=== PATIENT | female | born 1985 | race Hispanic/Latino ===

== ENCOUNTER 2017-01-17 00:07 | Inpatient (IN) | payer OTHER ==
[~2017-01-17] VITALS: Ht 154.9 cm; Wt 96.2 kg
[~2017-01-17 00:07] MED LIST: Hydrocodone/Acetaminophen PO; IRON1TAB PO; Ibuprofen PO; Lanolin TOPICAL; PREN1TAB47 PO; TUCPAD TOPICAL
[2017-01-17] MEDS ORDERED: Hemorrhage Kit, Post Partum XX ONE ×2 (00:50→01:55)
[2017-01-17] MEDS ORDERED: Oxytocin 10 Unit/mL Inj IM PRN ×2 (00:50→01:55)
[2017-01-17] MEDS ORDERED: Lactated Ringer's 1,000 ML IV PRN (00:50)
[2017-01-17] MEDS ORDERED: Methylergonovine 0.2 mg/mL Inj IM PRN ×2 (00:50→01:55)
[2017-01-17] MEDS ORDERED: Carboprost 250 mCg/mL Inj IM PRN ×2 (00:50→01:55)
[2017-01-17] MEDS ORDERED: fentaNYL-PF 50 mCg/mL 2 mL Inj IVPUSH PRN (00:50)
[2017-01-17] MEDS ORDERED: Ondansetron 2 mg/mL 2 mL Inj IVPUSH PRN (00:50)
[2017-01-17] MEDS ORDERED: Oxytocin 30 Units/500 mL LR 30 UNITS in IV Premix 1 EACH IV PRN (00:50)
[2017-01-17] MEDS ORDERED: Sodium Chloride LOK Flush 10 mL Syringe IVFLUSH PRN (00:50)
[2017-01-17] MEDS ORDERED: HYDROcodone-APAP 5-325 mg Tablet PO PRN (01:55)
--- NOTE | 2017-01-17 02:03 | PCM.HPOB ---
Subjective Date of Service: Jan 17, 2017 Referring Provider: Admitting Physician: Whitney Pantoja MD Primary Care Physician: Whitney Pantoja MD Attending Physician: Whitney Pantoja MD Chief Complaint Active labor at 38+5 weeks History of Present History of Present Illness Patient is a very pleasant 31-year-old who has had regular care with [facility] of January 26, 2017. She started michael at around 8 PM on 2016 and came to the center by 12:30 PM and was 4-5 cm dilated. She was michael every 7-8 minutes and blood pressures were initially elevated and in the 140-150/90 range. She was having some bloody show and was quite uncomfortable with the contractions. heart rate was reactive with baseline in the 140s and good ntoy-op-ufpt variability. Mother has been working full-time through most of the but stopped work in late December as she was getting a lot of swelling in the hands and the feet. She was standing on her feet for 10-12 hour shifts. The swelling in her feet resolved nicely with getting off work and she did not have any hypertension during her . Weight gain in the was 21 pounds. Patient was seen by maternal medicine and had a normal level II ultrasound and normal echocardiogram done. Her first baby had total anomalous pulmonary venous return and has had 2 heart surgeries but is currently alive and well, and baby #5 had had mild to moderate renal pyelectasis antenatally which resolved over time spontaneously after baby was born within the first year of life. Mother's quad screen was negative. GBS was also negative. OB History: (6), Term (5), (0), Living (5) Obstetrical Complications: None Past Medical History Obstetrical History: 1. Baby #1 was born May 2000 at 40 weeks gestational age following 12 hours of labor. Mom had normal vaginal delivery of a baby girl weighing 7 lbs. 7 oz. That baby had total anomalous pulmonary venous return and has had 2 heart surgeries but is alive and doing well. " "Nikki" 2. Baby #2 was born February 2006, at 40 weeks gestational age following 8 hours of labor. Mom had normal vaginal delivery of a baby girl weighing 7 lbs. 6 oz. was uncomplicated and baby is healthy." Carol Ann" 3. Baby #3 was born March 2009 at 40 weeks gestational age following 3 hours of labor. Mom had normal vaginal delivery of a baby girl weighing 6 lbs. 7 oz. was uncomplicated and baby is healthy. " Kylah" 4. Baby #4 was born May 2011 at 39 weeks gestational age following 2 hours of labor. Mom had normal vaginal delivery of a baby boy weighing 7 lbs. 6 oz. was uncomplicated and baby is healthy. " Bandar" 5. Baby #5 was born April 2014 at 39 weeks +5 days gestational age following 3 hours of labor. Mom had normal vaginal delivery of a baby boy weighing 7 pounds. was uncomplicated and baby was noted to have mild-to- moderate pyelectasis antenatally which resolve spontaneously over the first year of life. "[place]" Gynecologic History: Mom has not had any history of STDs or abnormal Pap smears. Medical History: She has had history of mild goiter and cholecystitis with gallstone pancreatitis. She had cholecystectomy in 2006. She had mild depression following her second baby that was situational and she did use medications for a short time. Surgical History: She has had laparoscopic gallbladder removal but no other surgeries. Social History: Mom is single but lives with the father of her baby and has 3 years of college education. 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 Hx Tobacco Use: No Hx Alcohol Use: No Hx Substance Use: No Past Family History Living Arrangement: with Family Genetic Screening/Counseling Genetic Screening/Counseling: Negative Genetic Screening: Congenital heart defect (her first baby had total anomalous pulmonary venous return) Baby father-had child w defect: No Review of Systems Constitutional: Y: Fever Eyes: Denies: Blurred Vision, Double Vision ENT: Denies: Dental Problems, Ear Pain, Nasal Congestion, Nose Discharge Cardiovascular: Denies: Chest Pain, Edema Respiratory: Denies: Cough Gastrointestinal: Denies: Abdominal Pain, Constipation, Diarrhea, Epigastric pain, Nausea, Vomiting Genitourinary: Denies: Dysuria Musculoskeletal: Denies: Back Pain, Neck Pain Skin/Breasts: Denies: Bruising Neurological: Denies: Change in Speech Psychologic: Denies: Agitation, Anxious, Depression Hematologic: Denies: Adenopathy Medications Home medications Patient was only taking vitamins at home. Allergy Coded Allergies: No Known Allergies (Verified , 03/08/06) Exam Vital Signs Initial blood pressures have ranged 140-150/91-93 , with maternal heart rate 75- 85. Mom is afebrile. Exam heart rate baseline was in the 130s to 140s with good variability. Constitutional: Well-developed, Well-nourished HEENT: Mucous Membr Moist/Tyler Lungs: Clear to Auscultation, Normal Air Movement Heart: Regular Rate/Rhythm, Normal S1, Normal S2, No Murmurs/Rubs/Gallops Abdomen: Gravid Extremities: Pulses Palpable x4, No Edema Neurological/Psychiatric: Alert, Oriented X3, Cooperative Neuro: Grossly Neurologically Intact Labs/Diagnostics Labs Mother's blood type is O+ with no abnormal antibodies. Pap smear was normal. Varicella and rubella are both immune. RPR was nonreactive. Urine culture showed mixed urogenital rodolfo. Hepatitis B surface antigen was negative. HIV was negative. Hepatitis C was less than 0.1. TSH was low at 0.134 but free T4 was normal at 1.10. HSV type I was positive for type II was negative. GC chlamydia was negative. Quad screen was normal. Her 1 hour GTT was elevated at 159. However the 3 hour GTT showed fasting blood sugar of 78, 1 hour value of 160, 2 are value of 117, and three-hour value of 117. Her A1c at time of this GTT was 5.4%. Antibody screen at that point was also negative. Group B strep was negative. Maternal Blood Type: O Hx Rho(D) Immune Globulin: No Antibody Screen: negative Group B Strep Results: Negative Previous with GBS: No Rubella: Immune Lab History: Positive for: Hx Herpes, Negative for: Hx Chicken Pox, Hx Gonorrhea, Hx HIV, Hx Syphilis OB Intrapartum Assessment/Plan Assessment 31-year-old at 38 weeks +5 weeks who came in in active labor. She is having bloody show but membranes are intact. heart rate is reassuring. Mother has not had an epidural with any of her previous pregnancies and intends to have natural labor. Blood pressures are modestly elevated in the 140-150 range/91-93. PIH labs will be drawn with usual admission blood work. Estimated weight is 6-1/2-7 pounds range. Normal vaginal delivery is anticipated. Problems: (1) with 38 completed weeks gestation Status: Acute ICD Code: Z3A.38 Pain Evaluation: Adequate Pain Control Whitney Pantoja MD 9, 2017 02:03
--- NOTE | 2017-01-17 02:22 | PCM.OBVAG ---
Vaginal Delivery Date of Service Jan 17, 2017 Pre Operative Diagnosis Pre Operative Diagnosis 1. at 38 weeks +5 days with spontaneous labor 2. Thin meconium staining to the amniotic fluid 3. Spontaneous vaginal delivery of a live born male Post Operative Diagnosis Post Operative Diagnosis 1. at 38 weeks +5 days with spontaneous labor 2. Thin meconium staining to the amniotic fluid 3. Spontaneous vaginal delivery of a live born male infant Procedure Obstetical Procedure: Normal Spontaneous Vaginal Delivery Shipping & Receiving Lead/Cloth Examiner Hand Provider and Cloth Examiner Hand: Dr. Whitney Pantoja Indication for Procedure Induction: Active labor, SROM, Progressed normally through labor Findings Obstetrical Findings: Cruger (Male), Cord (3 Vessel), Weight (2897), Presentation (Vertex), 1 minute (9), 5 minutes (9), Placenta (Intact /Normal) Analgesia/Medications Procedural Analgesia: Patient did not use any analgesia in labor. Her partner was present and supportive. Procedure Details Procedure Details Patient is a very pleasant 31-year-old who has had regular care with [facility] of 01/26/2017. She is 38 weeks +5 days and started in labor at 8 PM this evening and came to the center just after midnight and was 4-5 cm dilated. Membranes were intact at that time and heart rate was reactive with baseline in the 130s to 140s with good ffff-fn-eyyv variability. She made rapid progress over the next 30 minutes and had spontaneous rupture of membranes at complete for thin meconium staining to the amniotic fluid. She went onto spontaneous vaginal delivery of a live born male infant. Baby was vigorous and cried weight away and was placed on the maternal abdomen and delayed cord clamping was employed. weight was 6 pounds and 6 ounces, Apgars 9 at 1 minute and 9 at 5 minutes. Placenta delivered intact with a three -vessel cord and mother's perineum was intact. Her blood pressures prior to delivery ranged 140-150/91-93 range but first values after delivery were 128/ 75. Mother is not having any headaches, nausea or vomiting, or any visual changes. She has some puffiness to her hands but no ankle edema. I think that retrospectively her blood pressures may have just been pain related due to rapid progress in active labor. She has not had any history of PIH with any of her other babies and does not have hypertension outside of . Both mom and baby are doing well at this time and routine care is anticipated. Nursing staff had been unable to get an IV started before baby was delivered. Pitocin 10 units IM was given after delivery of the placenta and mother was having minimal bleeding, so further attempts at starting an IV were not made. Specimen Placenta was for routine disposal, it appeared intact. Blood Loss & Administration Estimated Blood Loss: 200 Post Procedure Plan Post delivery Condition: Mom stable Whitney Pantoja MD Jan 17, 2017 02:22
[2017-01-17] MEDS ORDERED: Oxytocin 30 Units/500 mL LR Premix IV ONE (02:48)
[2017-01-17 07:53] LABS: Mean Corpuscular Hemoglobin 31.1 pg (27.0-35.0); Mean Corpuscular Volume 96.7 fL (81-100)
[2017-01-18 07:00] LABS: Mean Corpuscular Hemoglobin 31.5 pg (27.0-35.0); Mean Corpuscular Volume 97.8 fL (81-100)
--- NOTE | 2017-01-18 08:09 | PCM.DC.OB ---
Obstetrical Discharge Summary Date of Service Jan 18, 2017 Date of hospital admission Jan 17, 2017 at 00:43 Date of Discharge: Jan 18, 2017 Providers Admitting Physician: Neville Pantoja MD Primary Care Physician: Neville Pantoja MD Attending Physician: Neville Pantoja MD Diagnosis at Time of Discharge #1 at 38 weeks +5 days with spontaneous labor #2 thin meconium staining to the amniotic fluid #3 spontaneous vaginal delivery of a live born male infant Problems: (1) with 38 completed weeks gestation Status: Resolved ICD Code: Z3A.38 (2) Thin meconium stained amniotic fluid Status: Resolved ICD Code: P96.83 (3) Term of male Status: Acute ICD Code: Z37.0 Brief History and Physical: Patient is a very pleasant 31-year-old who has had regular care with [facility] of January 26, 2017. She started michael at around 8 PM on 2016 and came to the center by 12:30 PM and was 4-5 cm dilated. She was michael every 7-8 minutes and blood pressures were initially elevated and in the 140-150/90 range. She was having some bloody show and was quite uncomfortable with the contractions. heart rate was reactive with baseline in the 140s and good iboy-bz-dgqz variability. Mother has been working full-time through most of the but stopped work in late December as she was getting a lot of swelling in the hands and the feet. She was standing on her feet for 10-12 hour shifts. The swelling in her feet resolved nicely with getting off work and she did not have any hypertension during her . Weight gain in the was 21 pounds. Patient was seen by maternal medicine and had a normal level II ultrasound and normal echocardiogram done. Her first baby had total anomalous pulmonary venous return and has had 2 heart surgeries but is currently alive and well, and baby #5 had had mild to moderate renal pyelectasis antenatally which resolved over time spontaneously after baby was born within the first year of life. Mother's quad screen was negative. GBS was also negative. Hospital Course: Mother is a very pleasant 31-year-old G6 now P6 who has had regular care and came into the center in active labor at 38 weeks +5 days. She made rapid progress to complete and thin meconium staining was noted in the amniotic fluid on SROM just before the baby was born. She went onto spontaneous vaginal delivery of a live born male , and baby was vigorous and cried right away. He was placed onto the maternal abdomen and delayed cord clamping was done. Apgars were 9 at 1 minute and 9 at 5 minutes. heart rate had been reactive with good nghw-em-ifut variability and good accelerations throughout labor and delivery. Placenta delivered intact with a three-vessel cord, and estimated blood loss at time of delivery was less than 300 mls. Mother's perineum was intact at time of delivery. In the mother has been doing well. She has been breast-feeding some but has mostly been bottle feeding and has done a combination of both of these feeding modalities for her other children. Her vital signs have been stable and she has been up and voiding and has passed her bowels. She is managing her pain with just ibuprofen. Bleeding has been minimal and she feels ready for discharge. She has good family supports and will be able to be home for the baby for a couple of months. ([Hydrocodone/Acetaminophen]) 1 TAB TABLET 1-2 TAB PO Q3 PRN PRN For Pain Prescribed by: NEVILLE PANTOJA MD ([Lanolin]) 14 APPLIC/7 GM OINT 1 APPLIC TOPICAL PRN PRN PRN Prescribed by: NEVILLE PANTOJA MD ([Ibuprofen]) 800 MG TABLET 800 MG PO TID PRN PRN For Pain Prescribed by: NEVILLE PANTOJA MD Iron/Docusate Sodium (Mellisa-Sequels Tablet) 1 Tab.sa Tablet.sa 1 TAB.SA PO DAILY (Reported) Vit/Fe Fumarate/Fa-Expunged Drug, Do (-Expunged Drug, Do Not Renew!) 1 Tab Tablet 1 TAB PO DAILY (Reported) Witch Rosa/Glycerin (A.e.r Pads) 12 Towelette/Pkg Towelette 1 TOWELETTE TOPICAL UD PRN PRN perineal discomfort Prescribed by: NEVILLE PANTOJA MD Discharge Medications: #1 vitamins 1 tab daily while breast-feeding #2 ibuprofen 800 mg by mouth 3 times a day when necessary for pain Follow-up plan Please see Dr. Pantoja in the office in approximately 6 weeks Discharge Diet: No restrictions Discharge Activity-General: Pelvic Rest for 6 weeks, Pelvic Rest, Try not to overdue, Be up and about, Balance rest and activity, Activity as pain allows, Activity as energy allows Neville Pantoja MD Jan 18, 2017 08:09
--- NOTE | 2017-01-18 08:13 | PCM.DIOB ---
Obstetrical Disch Instruction Date of Service: Jan 18, 2017 Dates of Hospitalization Date of Hospital Admission Jan 17, 2017 at 00:43 Providers Admitting Physician: Whitney Pantoja MD Primary Care Physician: Whitney Pantoja MD Attending Physician: Whitney Pantoja MD Discharge Diagnosis Discharge Diagnosis #1 at 38 weeks +5 days with spontaneous labor #2 thin meconium staining to the amniotic fluid #3 spontaneous vaginal delivery of a live born male Post Operative diagnosis #1 at 38 weeks +5 days with spontaneous labor #2 thin meconium staining to the amniotic fluid #3 spontaneous vaginal delivery of a live born male infant Problems: (1) with 38 completed weeks gestation Status: Resolved ICD Code: Z3A.38 (2) Thin meconium stained amniotic fluid Status: Resolved ICD Code: P96.83 (3) Term of male Status: Acute ICD Code: Z37.0 Diet Discharge Diet: No restrictions Activity Discharge Activity-General: No restrictions, Pelvic Rest for 6 weeks, Try not to overdue, Be up and about, Balance rest and activity, Activity as pain allows , Activity as energy allows Dressing and Incisional Care Hygiene: May shower, Perineal care, Sitz bath, Dermoplast spray, Witch Rosa pads, Ice Follow Up Plan Follow-up Provider (F9): Whitney Pantoja MD Follow-up appointment: Weeks (6) Call your provider for: Fever or Chills, Shortness of breath, Heavy vaginal bleeding, Epigastric pain, Excessive constipation, Vaginal discomfort, Red painful breasts Whitney Pantoja MD Jan 18, 2017 08:13
[2017-01-18] MEDS ORDERED: IBUP800T28 PO (08:14)
[2017-01-18 08:36] VITALS: BP 117/71; PULSE 71; RESP 16
== END 2017-01-18 10:43 | disposition home or self-care (01) | DRG 775 ==
LOC: FBCO 00:07 → FBC 00:43
PROVIDERS: ADMIT Family Medicine; ATTEND Family Medicine
PROC: 10E0XZZ Delivery of Products of Conception, External Approach (ICD-10-PCS; principal; 2017-01-17)
DX: O77.0 Labor and delivery complicated by meconium in amniotic fluid (principal); O09.43 Supervision of pregnancy with grand multiparity, third trimester; Z3A.38 38 weeks gestation of pregnancy; Z37.0 Single live birth